=== PATIENT | female | born 1975 | race Asian ===

== ENCOUNTER → 2017-02-14 | Outpatient (CLI) | payer BC, OTHER ==
[~2017-02-14] MED LIST: NORCO1 TA1 PO
--- NOTE | 2017-02-14 16:52 | DIAGNOSTIC IMAGING REPORT ---
PROCEDURE: XR CHEST 2 VIEW INDICATION: LYMPH ADENOPATHY TECHNIQUE: PA and lateral views. COMPARISON: None. FINDINGS: Lungs are clear. Heart and mediastinum are normal. There is a mild to moderate dextroscoliosis of the thoracic spine. IMPRESSION: 1. Mild to moderate dextroscoliosis (18 degrees). 2. Otherwise negative chest. No evidence of mediastinal or hilar adenopathy.
== END ==
LOC: XR SRH 16:20
DX: M41.9 Scoliosis, unspecified (principal)

== ENCOUNTER 2017-02-19 11:51 | Day surgery (SDC) | payer BC, OTHER ==
[~2017-02-19] VITALS: Ht 152.4 cm; Wt 65.4 kg
[2017-02-19] MEDS ORDERED: NORCO1 TA1 PO (15:59)
--- NOTE | 2017-02-19 16:00 | Provider's Discharge Care Plan ---
Problem, Goal, Plan Problem List 1. Breast CA
--- NOTE | 2017-02-19 16:00 | Provider's Discharge Care Plan ---
Problem, Goal, Plan Problem List 1. Breast CA
--- NOTE | 2017-02-19 17:23 | Provider's Discharge Care Plan ---
Problem, Goal, Plan Problem List 1. Lymphadenopathy of right cervical region
--- NOTE | 2017-02-19 17:23 | Provider's Discharge Care Plan ---
Problem, Goal, Plan Problem List 1. Lymphadenopathy of right cervical region
[2017-02-19 17:47] VITALS: BP 122/69
[2017-02-19 18:00] VITALS: BP 113/74
[2017-02-19 18:17] VITALS: BP 120/80
[2017-02-19 18:30] VITALS: BP 129/82
== END 2017-02-19 19:15 | disposition home or self-care (01) ==
LOC: OR SRH 11:51 → ACUTE2 SRH 16:00 → OR SRH 19:15
PROVIDERS: Surgery
PROC: 07B10ZX Excision of Right Neck Lymphatic, Open Approach, Diagnostic (ICD-10-PCS; principal; 2017-02-19 14:00)
DX: R59.0 Localized enlarged lymph nodes (principal); E11.9 Type 2 diabetes mellitus without complications